=== PATIENT | female | born 1980 | race Two or more races ===

== ENCOUNTER 2022-06-15 23:35 | Emergency (ER) | payer MEDICAID, OTHER ==
[~2022-06-15] VITALS: Ht 172.7 cm; Wt 84.1 kg
[2022-06-16 00:31] VITALS: BP 139/96
[2022-06-16] MEDS ORDERED: TETANUS-DIPTH-ACEL PERTUSSIS 0.5ML SYR Tdap IM ONE (01:30)
== END 2022-06-16 01:51 | disposition home or self-care (01) ==
LOC: ER 23:35
DX: S91.331A Puncture wound without foreign body, right foot, initial encounter (principal); W18.02XA Striking against glass with subsequent fall, initial encounter; Y93.89 Activity, other specified; Y92.89 Other specified places as the place of occurrence of the external cause; Y99.8 Other external cause status
CPT/HCPCS: 90471; 90715

== ENCOUNTER 2024-02-06 22:59 | Emergency (ER) | payer MEDICAID ==
[~2024-02-06] VITALS: Ht 172.7 cm; Wt 110.9 kg
[2024-02-07] MEDS ORDERED: IBUP1TAB5 PO (02:42)
[2024-02-07] MEDS: HYDROcodone-ACET 5/325MG TAB PO ONE (04:21)
[2024-02-07 04:22] VITALS: BP 143/95; PULSE 88; RESP 18; TEMP 98.2; O2SAT 97
== END 2024-02-07 07:19 | disposition home or self-care (01) ==
LOC: ER 22:59
DX: S93.402A Sprain of unspecified ligament of left ankle, initial encounter (principal); S80.12XA Contusion of left lower leg, initial encounter; W22.8XXA Striking against or struck by other objects, initial encounter; Y93.89 Activity, other specified; Y92.89 Other specified places as the place of occurrence of the external cause; Y99.8 Other external cause status
CPT/HCPCS: 29515; 73590; 73610; 93971